=== PATIENT | female | born 1960 | race Caucasian/White ===

== ENCOUNTER 2022-02-28 09:37 | Emergency (ER) | payer OTHER | END 2022-02-28 09:56 | disposition home or self-care (01) | LOC: BURERS 09:37 | DX: L04.0 Acute lymphadenitis of face, head and neck (principal) | CPT/HCPCS: 99283 ==

== ENCOUNTER 2022-04-29 15:39 | Emergency (ER) | payer OTHER | END 2022-04-29 16:07 | disposition home or self-care (01) | LOC: BURERS 15:39 | DX: H60.92 Unspecified otitis externa, left ear (principal); H66.92 Otitis media, unspecified, left ear | CPT/HCPCS: 99282 ==

== ENCOUNTER 2023-10-08 12:36 | Emergency (ER) | payer OTHER ==
[2023-10-08] MEDS ORDERED: Bacitracin 1 PK ONE (13:18)
== END 2023-10-08 13:23 | disposition home or self-care (01) ==
LOC: BURERS 12:36
DX: T81.31XA Disruption of external operation (surgical) wound, not elsewhere classified, initial encounter (principal); L98.9 Disorder of the skin and subcutaneous tissue, unspecified
CPT/HCPCS: 99283